=== PATIENT | female | born 1970 | race Caucasian/White ===

== ENCOUNTER 2016-12-30 19:50 | Emergency (ER) | payer OTHER ==
[~2016-12-30] VITALS: Ht 162.6 cm; Wt 113.6 kg
[2016-12-30 19:56] VITALS: BP 119/88; PULSE 81; RESP 21; O2SAT 97
--- NOTE | 2016-12-30 20:32 | ED.REPORT ---
HPI-Chest Pain 40 and Over Date of Service Dec 30, 2016 ED Provider: Wilver Siegel MD 46 y/o female with no pertinent hx presents to the ED via EMS complaining of left shoulder pain that radiates to her left arm, onset last night. Th pt was at rest when the pain began and has been constant since. She took an Advil which did not improve her sx. She denies chest pain but states she has to make an effort to take a deep breath. She also denies change in left shoulder and arm pain with exertion, with arm movement and with palpation. The EMS administered 2 sprays of Nitro en route which decreased the severity of her pain from a 5/10 to a 2/10. However, the pt states the pain is returning now.She has never experienced similar sx before. PCP: Dr. Anne-Marie Butler in [place]. Nursing Notes Stated Complaint: LEFT ARM PAIN Chief Complaint: Chest Pain Nursing Notes Reviewed: Yes Allergies: Uncoded Allergies: PENICILLIN (Allergy, Unknown, 12/30/16) General Time Seen by MD: 20:31 Chief Complaint Other (left shoulder pain) Hx Obtained From: Patient Arrived By: Ambulance Sudden in Onset?: Yes Onset Occurred: 21 - 23 hours ago Symptom Duration: Since onset Location: : Shoulder left Quality: Painful Radiation: : Arm left Severity: Current: Moderate Severity: Maximum: Pain level 5 out of 10 Recent Healthcare: No recent doctor visit Similar Sx Previous: No Past Medical History Past Medical History none reported Past Surgical History none reported Smoking History Unknown if Ever Smoker Social History Other Social History: Good social support, Ambulatory Status Independent Review of Systems Respiratory: Reports: Shortness of breath Musculoskeletal: Reports: Extremity pain (left arm), Joint pain (left shoulder) Complete sys rev & neg: except as marked. Physical Exam Initial Vital Signs Vital Signs (First) Date Time Temp Pulse Resp B/P Pulse Ox O2 Delivery O2 Flow Rate FiO2 12/30/16 19:56 36.7 81 21 119/88 97 Room Air Initial VS: Reviewed Head / Eyes: Atraumatic, Normocephalic Neck: Supple, Non-tender, Full range of motion Extremities: Vascular intact, Neuro intact, No swelling, No tenderness Skin: Warm, Dry, No cyanosis Neurologic: Alert, Oriented, Nonfocal General/Constitutional: Awake, Alert, No acute distress, Cooperative Respiratory / Chest: Atraumatic, Breath sounds NL, Breath sounds = bilat, No respiratory distress, No rales, No rhonchi, No wheezing Cardiovascular: Heart rate NL, Regular rhythm, Heart sounds NL, No gallop, No murmurs, No rubs Abdomen: Atraumatic, Soft, Non-tender, No guarding, No rebound, BS normoactive Neck: Atraumatic, Supple, Full range of motion Mild paraspinus tenderness on the left. Interpretation & Diagnostics Lab Results Interpretation Result Diagram: 12/30/16202412/30/162024 Test 12/30/16 20:25 White Blood Count 7.6th/mm3 (3.8-10.1) Red Blood Count 4.93mil/mm3 (3.90-5.20) Hemoglobin 13.3g/dL (12.0-15.6) Hematocrit 40.8% (35.0-46.0) Mean Corpuscular Volume 82.8fL (81-100) Mean Corpuscular Hemoglobin 27.0pg (27.0-35.0) Mean Corpuscular Hemoglobin Concent 32.6% (32.0-37.0) Red Cell Distribution Width 14.0% (12.3-15.4) Platelet Count 267bil/L (150-400) Neutrophils (%) (Auto) 53.7% (40-74) Lymphocytes (%) (Auto) 34.2% (14-46) Monocytes (%) (Auto) 7.4% (4-12) Eosinophils (%) (Auto) 3.6% (0-5) Basophils (%) (Auto) 0.7% (0-3) Sodium Level 140mEq/L (134-144) Potassium Level 4.4mEq/L (3.5-5.2) Chloride Level 102mEq/L (97-108) Carbon Dioxide Level 20mmol/L (18-29) Blood Urea Nitrogen 13mg/dL (6-24) Creatinine 0.73mg/dL (0.57-1.00) Estimat Glomerular Filtration Rate 122mL/min (>59) Glucose Level 210mg/dL (60-99) Calcium Level 9.7mg/dL (8.5-10.1) Magnesium Level 1.9mg/dL (1.6-2.6) Total Bilirubin 0.2mg/dL (0.0-1.2) Aspartate Amino Transf (AST/SGOT) 23U/L (0-50) Alanine Aminotransferase (ALT/SGPT) 28U/L (0-32) Alkaline Phosphatase 69U/L (25-150) Troponin T 0.010ug/L (0.0-0.011) Total Protein 7.0g/dL (6.4-8.4) Albumin 3.9g/dL (3.4-5.0) Hold [place] Top Tube Received (Received) ECG Interpretation ECG Interpretation: Both field ECGs are normal. ED ECG: Normal sinus rhythm. Rate 70. Time: 20:14 Interpreted by: ED physician ECG Interpretation: Normal sinus rhtyhm. Rate 70 Time: 23:25 Interpreted by: ED physician Normal ECG Interpretation: Normal ECG w/ rate of... (70), Normal sinus rhythm Repeat ECG: Repeat ECG unchanged X-Ray Chest Interpretation Chest Xray Interpretation: IMPRESSION: No acute disease Dictated by: Landry Ozuna M.D. on 12/30/2016 at 20:53 Approved by: Landry Ozuna M.D. on 12/30/2016 at 20:54 View: Portable Interpretation / Wet Read by: Interpret - Radiologist Re-Eval/Medical Decision Time of Eval: 22:19 Patient Status: Mild relief Re-Evaluation/Progress Note: Rechecked pt. Discussed imaging results, lab results, diagnosis and plan to dischagre based on results of repeat ECG. The pt understands and agrees with the plan. All questions answered. Counseled Regarding: Diagnosis, Lab results, Need for follow-up, When/why to return to ED Discharge & Departure Primary Impression: Left shoulder pain Chronicity: acute Qualified Code: M25.512 - Pain in left shoulder Disposition: Home Additional Instructions: Emergency department evaluation tonight included interview, examination ECG chest x-ray labs. No serious cause for left shoulder pain is identified. There was concern that this would be related to a heart issue, however we find no evidence for this. Given that this pain is been present for 18 hours or more , and there are no findings for heart injury on labs or ECG is felt safe to discharge home at this point. May use ibuprofen and/or acetaminophen as needed for pain. Return to emergency department for increasing pain, fevers or shortness of breath. Follow-up with primary care next week. Referrals: Anne-Marie Butler MD Attestation Portions of this note were transcribed by Je Cruz. I, , personally performed the history, physical exam and medical decision- making;I reviewed and confirmed the accuracy of the information in the transcribed note. Signed by Nathalia Torrez. 12/31/16 00:25 copies to: Anne-Marie Butler MD, Donald L MD Dec 30, 2016 20:32 Je Cruz Dec 30, 2016 20:42
[2016-12-30 20:34] LABS: BASOPHILS % (AUTO) 0.7 % (0-3); EOSINOPHILS % (AUTO) 3.6 % (0-5); MONOCYTES % (AUTO) 7.4 % (4-12); Mean Corpuscular Volume 82.8 fL (81-100); NEUTROPHILS % (AUTO) 53.7 % (40-74); Platelet Count 267 bil/L (150-400)
[2016-12-30 20:43] VITALS: BP 112/78; PULSE 80; RESP 20; O2SAT 97
--- NOTE | 2016-12-30 20:56 | DRSVH ---
PROCEDURE: X-RAY CHEST ONE VIEW, PORTABLE ([id number]) INDICATIONS: chest pain TECHNIQUE: One view of the chest was acquired. COMPARISON: None. FINDINGS: Surgical changes and devices: None. Lungs and pleura: No pleural effusions or pneumothorax. Lungs are clear. Mediastinum: Mediastinal contours appear normal. Heart size is normal. Bones and chest wall: No suspicious bony lesions. Overlying soft tissues appear unremarkable. IMPRESSION: No acute disease Dictated by: Landry Ozuna M.D. on 12/30/2016 at 20:53 Approved by: Landry Ozuna M.D. on 12/30/2016 at 20:54
[2016-12-30 20:58] LABS: TROPONIN T 0.01 ug/L (0.0-0.011)
[2016-12-30 21:11] LABS: Magnesium 1.9 mg/dL (1.6-2.6)
[2016-12-30 21:27] VITALS: BP 103/75; PULSE 81; RESP 20; O2SAT 97
[2016-12-30 23:44] VITALS: BP 94/65; PULSE 74; RESP 17; O2SAT 97
[2016-12-31 00:24] VITALS: BP 109/66; PULSE 77; RESP 17; O2SAT 97
== END 2016-12-31 00:32 | disposition home or self-care (01) ==
LOC: SED 19:50
DX: M25.512 Pain in left shoulder (principal); R06.02 Shortness of breath